=== PATIENT | male | born 1995 | race Caucasian/White ===

== ENCOUNTER 2021-12-28 21:34 | Emergency (ER) | payer MEDICARE, MEDICAID, SELFPAY ==
[2021-12-28 21:40] VITALS: BP 132/83; PULSE 86; RESP 16; TEMP 36.7; O2SAT 99; BMI 22.7
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
[2021-12-29 01:50] VITALS: PULSE 74; RESP 14; O2SAT 99
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
== END 2021-12-29 01:50 | disposition home or self-care (01) ==
PROVIDERS: Emergency Provider Emergency Medicine; Visit Provider Emergency Medicine
DX: S00.03XA Contusion of scalp, initial encounter (principal); S39.012A Strain of muscle, fascia and tendon of lower back, initial encounter; Y92.410 Unspecified street and highway as the place of occurrence of the external cause; V40.6XXA Car passenger injured in collision with pedestrian or animal in traffic accident, initial encounter; Y93.89 Activity, other specified; Y99.8 Other external cause status; F17.210 Nicotine dependence, cigarettes, uncomplicated
CPT/HCPCS: 70450; 72100; 99284